=== PATIENT | female | born 2000 | race Caucasian/White ===

== ENCOUNTER 2020-12-04 18:52 | Emergency (ER) | payer BC ==
[~2020-12-04] VITALS: Ht 160 cm; Wt 59.1 kg
[2020-12-04 20:00] VITALS: BP 108/64; PULSE 82; TEMP 98.5
== END 2020-12-04 20:04 | disposition home or self-care (01) ==
LOC: COL.ER 18:52
DX: S92.515A Nondisplaced fracture of proximal phalanx of left lesser toe(s), initial encounter for closed fracture (principal); W51.XXXA Accidental striking against or bumped into by another person, initial encounter; Y93.68 Activity, volleyball (beach) (court)